=== PATIENT | female | born 1970 | race Caucasian/White ===

== ENCOUNTER → 2016-06-23 | Day surgery (SDC) | payer BC ==
--- NOTE | 2016-06-07 19:22 | HISTORY & PHYSICAL EXAMINATION ---
DATE: 06/23/2016 CHIEF COMPLAINT: Heavy vaginal bleeding with clotting, mass protruding from the vagina. HISTORY OF PRESENT ILLNESS: The patient is a 46-year-old 4, para 4. General health is good. She is on no chronic pills or medications. No form of control. No known drug allergies. She described as coming every 28-30 days, lasting for 4-5 days. For the past 6 months she has 1-2 days of extremely heavy bleeding, soaking over a pad an hour. She also has severe cramps on her heaviest day and as previously stated, has been present for over 6 months. Pelvic exam in the office revealed a large pedunculated cervical fibroid rising at 12 o'clock. She has also had a recent transvaginal ultrasound, presently being scheduled for an outpatient D&C, hysteroscopy and cervical polypectomy. PAST MEDICAL HISTORY: Four children in good health. ALLERGIES: She has no known drug allergies. PAST SURGICAL HISTORY: She has had a tonsillectomy and adenoidectomy. She has had knee surgery. MEDICAL HISTORY: No history of rheumatic fever, heart disease. She is not on any chronic pills or medication. SOCIAL HISTORY: No smoking. No excessive alcohol intake. FAMILY HISTORY: Mom is 61, has chronic lung disease. She is oxygen dependent. Father is 64 in good health except for high blood pressure. She has 1 brother in good health. REVIEW OF SYSTEMS: HEAD: No symptoms of frequent or severe headaches. EYES: No symptoms of blurred vision, double vision. EARS: No symptoms of frequent ear infections, difficulty hearing. NOSE: No symptoms of frequent nosebleeds, difficulty breathing through her nose. THROAT: No symptoms of frequent or severe sore throat, difficulty swallowing. RESPIRATORY SYSTEM: No history of asthma, chest pain, shortness of breath. PHYSICAL EXAMINATION: GENERAL: Well developed, well-nourished 46-year-old white female, alert, oriented x3 and cooperative in no acute distress, appears stated age. EYES: Conjunctivae are pink, sclerae white, no evidence of jaundice. EARS: Had normal light reflex bilaterally. NOSE: Had normal mucosa. Septum is midline. There were no polyps. THROAT: No erythema or evidence of infection. HEART: Regular rhythm. S1 and S2 are normal. LUNGS: Clear to auscultation and percussion. BREASTS: Normal. ABDOMEN: Soft and nontender. PELVIC: Revealed normal-appearing cervix. There was a large pedunculated polyp 3-5 cm in length and about 2 cm in width arising from the cervix at 12 o'clock. The uterus was enlarged to about 11-12 weeks' size. There were no adnexal masses appreciated. MUSCULOSKELETAL: Revealed no calf tenderness. IMPRESSIONS OF THIS CASE: Uterine enlargement, large cervical polyp, hypermenorrhea.
[2016-06-15 08:00] VITALS: Ht 167.6 cm; Wt 88.6 kg
--- NOTE | 2016-06-16 14:17 | HISTORY & PHYSICAL EXAMINATION ---
DATE OF ADMISSION: 06/23/2016 CHIEF COMPLAINT: Heavy vaginal bleeding with clotting, mass protruding from the vagina. HISTORY OF PRESENT ILLNESS: The patient is a 46-year-old 4, para 4. General health is good. She is on no chronic pills or medication. She had tubal ligation for control. She recently came into the office because she felt a mass sticking out of her vagina. Periods are described as every 28-30 days, lasting 4-5 days. At times she has heavy bleeding, soaking over a pad an hour. She has severe cramps one of to the day's. Transvaginal ultrasound on 06/07/2016 showed a 2.1 cm thick endometrial cavity, and a pelvic exam revealed a long polyp protruding from the cervix about 3-4 inches. Presently being scheduled for a D\T\C, hysteroscopy, polypectomy. PAST MEDICAL HISTORY: Four children in good health. ALLERGIES: No known drug allergies. PAST SURGICAL HISTORY: Status post tubal ligation, status post T\T\A, status post right knee surgery. MEDICAL HISTORY: No history of rheumatic fever, heart disease, heart murmur, diabetes, tuberculosis. SOCIAL HISTORY: No smoking. No excessive alcohol intake. Works at [email or web address]. FAMILY HISTORY: Mother is 61 in poor health, has chronic lung disease, alpha 1 antitrypsin deficiency. Father is 64, has high blood pressure. One sister in good health. REVIEW OF SYSTEMS: HEAD: No symptoms of frequent or severe headaches. EYES: No symptoms of blurred vision, double vision. EARS: No symptoms of frequent ear infections, difficulty hearing. NOSE: No symptoms of frequent nosebleeds. PHYSICAL EXAMINATION: GENERAL: Well developed, well-nourished 46-year-old white female, alert, oriented x3 and cooperative in no acute distress, appears stated age. EYES: Conjunctivae are pink. Sclerae white. No evidence of jaundice. EARS: Had normal light reflex bilaterally. NOSE: Had normal mucosa. Septum is midline. There were no polyps. THROAT: No erythema or evidence of infection. Teeth are in good state of repair. HEAD: Was normocephalic, normal distribution of hair. NECK: Supple. Trachea midline. Thyroid is not enlarged. There is no adenopathy appreciated. Both carotids are of good intensity. CHEST: Clear to auscultation and percussion. No wheezes, rales or rhonchi appreciated. HEART: Regular rhythm. S1, S2 were normal. BREASTS: Normal. ABDOMEN: Soft and nontender. PELVIC: Revealed uterus was about 10-11 weeks' gestational size. There was a large 4-5 inch polyp protruding from the external cervical os. MUSCULOSKELETAL: Revealed no calf tenderness. IMPRESSIONS OF THIS CASE: Status post tubal ligation, status post tonsillectomy and adenoidectomy, status post right knee surgery and symptomatic large endometrial polyp, dysfunctional bleeding, abnormal transvaginal ultrasounds. MTDD
[~2016-06-23] VITALS: Ht 167.6 cm; Wt 88.6 kg
[~2016-06-23] MED LIST: ATROPINE SULFATE 0.1 MG/ML 5ML SYR IV PRN; DEXAMETHASONE SOD INJ 4 MG/ML VIAL ONE; EpHEDrine SULFATE INJ 50 MG/ML AMP IV PRN; FENTANYL CITRATE INJ 50 MCG/1 ML 2 ML VIAL ONE; HYDROCODONE/ACETAMOPHEN 5/325MG TAB PO PRN; IBUPROFEN 600 MG TAB PO PRN; KETOROLAC TROMETHAMINE 30 MG/ML VIAL IV. PRN; LACTATED RINGER'S 1000ML 1,000 ML IV SCH; LIDOCAINE HCL 2% 2 ML VIAL (20MG/ML) ONE; LIDOCAINE/EPINEPHRINE 1% INJ 50 ML VIAL ONE; MIDAZOLAM HCL 1 MG/ML 2ML VIAL ONE; MULT-506 PO; ONDANSETRON INJ 2 MG/ML 2 ML VIAL IV PRN; ONDANSETRON INJ 2 MG/ML 2 ML VIAL ONE; OXYC-57 PO; OXYCODONE/ACETAMINOPHEN 5-325 TAB PO PRN; PROMETHAZINE HCL INJ 12.5 MG in SODIUM CHLORIDE 0.9% 50ML 50 ML IV PRN; PROPOFOL IV EMULSION 10 MG/ML 20 ML VIAL IV ONE; SODIUM CHLORIDE 0.9% 1000ML 1,000 ML IV SCH
--- NOTE | 2016-06-23 08:01 | History & Physical Bridge Note ---
H&P Re-Evaluation Bridge Note: I have examined the patient, reviewed the History & Physical and in the interval since the performance of the History & Physical I have noted the following changes of clinical significance: No changes noted
--- NOTE | 2016-06-23 08:58 | [facility] Post Operative Brief Note ---
Immediate Operative Summary Operative Date Jun 23, 2016. Pre-Operative Diagnosis Uterine Enlargement, Large Cervical Polyp, Hypermenorrhea Post-Operative Diagnosis Same Procedure(s) Performed Dilatation And Curettage, Hysteroscopy, Polypectomy Surgeon Dr. Brooke Research/Program Director Surgeon(s) None Findings uterus sounded to 10.5cm large 4 cm cervical polyp at 12 o'clock large amount of endometrial curettings Specimens polyp endometrial curettings Complication(s) None Disposition Recovery Room / PACU
--- NOTE | 2016-06-23 09:01 | Discharge Instructions-SurgCtr ---
Discharge Instructions Visit Reason for Visit: Hypermenorrhea, Cervical Polyp Discharge Discharge Diagnosis / Problem: hypermenorrhea cervical polyp Discharge Goals Goal(s): Improve function, Learn about illness Medications Restart Stopped Medication(s): ACTIVITY RECOMMENDATIONS: * Avoid tampons, douching, hot tubs, pools, and intercourse until bleeding has stopped. * May shower as usual. * No strenuous activity for 24-48 hours. After 24-48 hours, you may do anything you feel like doing (driving and sports are okay). SPECIAL CARE INSTRUCTIONS: Special Diet: * Mild nausea may occur in the immediate post-operative period. * Take clear liquids such as tea, cola or bouillon until all nausea has subsided; you may then resume your normal diet. Special Care: * Light bleeding and vaginal spotting can last from a few days to 3-4 weeks. Call your doctor if bleeding becomes heavier than the heaviest part of your period. * Check your temperature twice a day for one week. If it goes above 100.4 degrees Fahrenheit (38.0 Celsius), notify your doctor. * Call your doctor's office for an appointment for 6 weeks after your surgery. FOLLOW-UP VISIT: Call your doctor's office for an appointment for 6 weeks after your surgery. Activity Recommendations Activity Limitations: as noted below ACTIVITY RECOMMENDATIONS: * Avoid tampons, douching, hot tubs, pools, and intercourse until bleeding has stopped. * May shower as usual. * No strenuous activity for 24-48 hours. After 24-48 hours, you may do anything you feel like doing (driving and sports are okay). SPECIAL CARE INSTRUCTIONS: Special Diet: * Mild nausea may occur in the immediate post-operative period. * Take clear liquids such as tea, cola or bouillon until all nausea has subsided; you may then resume your normal diet. Special Care: * Light bleeding and vaginal spotting can last from a few days to 3-4 weeks. Call your doctor if bleeding becomes heavier than the heaviest part of your period. * Check your temperature twice a day for one week. If it goes above 100.4 degrees Fahrenheit (38.0 Celsius), notify your doctor. * Call your doctor's office for an appointment for 6 weeks after your surgery. FOLLOW-UP VISIT: Call your doctor's office for an appointment for 6 weeks after your surgery. Anesthesia . Post Anesthesia Instructions: If you have had General Anesthesia or IV Sedation: * Do not drive today. * Resume driving when surgeon permits. * Do not make important decisions or sign legal documents today. * Call surgeon for: 1. Temperature elevations greater than 101 degrees F. 2. Uncontrollable pain. 3. Excessive bleeding. 4. Persistent nausea and vomiting. 5. Medication intolerance (nausea, vomiting or rash). * For nausea and vomiting use only clear liquids such as: tea, soda, bouillon until nausea subsides, then gradually increase diet as tolerated. * If you have any concerns or questions, call your surgeon's office. If physician is unavailable and it is an emergency, call 911 or go to the nearest emergency room. . Procedures Procedures Performed: Dilatation And Curettage, Hysteroscopy, Polypectomy Pending Studies Studies pending at discharge: no Medical Emergencies . Who to Call and When: Medical Emergencies: If at any time you feel your situation is an emergency, please call 911 immediately. . Non-Emergent Contact Non-Emergency issues call your: Mixer Lever Operator Call Non-Emergent contact if: temperature is above 100.5 . . "Provider Documentation" section prepared by Maco Brooke.
--- NOTE | 2016-06-23 09:22 | OPERATIVE REPORT ---
DATE OF OPERATION: 06/23/2016 PROCEDURE: D and C, hysteroscopy, cervical polypectomy. INDICATIONS FOR SURGERY: Mass protruding from the vagina. PREOPERATIVE DIAGNOSIS: Abnormal transvaginal ultrasound, large cervical polyp. ESTIMATED BLOOD LOSS: 10 mL ANESTHESIA: General. SURGEON: Dr. Brooke. WEB UI SOFTWARE ENGINEER: Nurse classroom assistant. ESTIMATED BLOOD LOSS: 10 mL OPERATIVE FINDINGS AND PROCEDURE: The patient was brought to the OR table, correctly identified by armband and conversation. General anesthesia was administered. Perineum and vagina were painted with Betadine paint, draped in usual sterile fashion. Catheter was used to empty the bladder. A weighted speculum was placed in the posterior vagina. Anterior lip of the cervix was grasped with single tooth tenaculum. The cervix was easily brought out to the vaginal opening, indicating a [id number] uterine prolapse. Uterus was then sounded to 10.5 cm. The polyp was located at 12 o'clock on the cervix. It was about 4+ cm long and fleshy and had a wide base at 12 o'clock. We proceeded to dilate up the cervical canal, insert a hysteroscope, take photographs, there appeared to be abundant endometrial tissue and then did a thorough and systematic curettage of the entire endometrial cavity both with a smooth and sharp curette. This was productive of a rather large amount of grossly normal appearing tissue and some polypoid-appearing tissue. Following thorough curettage of the endometrial cavity, I infiltrated the cervix at 12 o'clock with local with epinephrine with about 10+ mL. I then did a cold knife excision of the polyp, taking with it a good portion of the base and anterior portion of the cervix. I then used mattress sutures of Vicryl to control the bleeding, 3 mattress sutures and some interrupted sutures. Hemostasis was excellent. I then packed the endocervical canal with Surgicel and the procedure was terminated. I attest to the content of the Intraoperative Record and any orders documented therein. Any exceptions are noted below. PRAVIND
[2016-06-23] MEDS: FENTANYL CITRATE INJ 50 MCG/1 ML 2 ML VIAL IV PRN ×4 (09:23→09:42)
[2016-06-23 10:00] VITALS: TEMP 36.9
--- NOTE | 2016-06-23 10:22 | Anesthesia Progress Nt - [facility] ---
Anesthesia Post Op Note Date & Time Jun 23, 2016 at 10:22 Vital Signs Pain Intensity: 5.0 Vital Signs Past 12 Hours Date Time Temp Pulse Resp B/P Pulse Ox O2 Delivery O2 Flow Rate FiO2 06/23/16 10:00 36.9 79 16 116/76 96 Room Air 06/23/16 09:54 136/76 06/23/16 09:50 87 13 93 06/23/16 09:50 37.0 86 16 133/70 94 Room Air 06/23/16 09:50 87 13 06/23/16 09:49 133/70 06/23/16 09:45 86 14 06/23/16 09:45 84 14 98 06/23/16 09:43 123/102 06/23/16 09:40 84 13 06/23/16 09:40 81 13 98 06/23/16 09:39 124/84 06/23/16 09:35 86 14 93 06/23/16 09:35 87 14 06/23/16 09:33 129/65 06/23/16 09:30 90 11 06/23/16 09:30 89 11 94 06/23/16 09:29 127/78 06/23/16 09:25 94 14 06/23/16 09:25 94 14 87 06/23/16 09:24 109/66 06/23/16 09:20 82 13 99 06/23/16 09:20 82 13 06/23/16 09:18 126/80 06/23/16 09:15 81 14 06/23/16 09:15 82 14 98 06/23/16 09:14 132/68 06/23/16 09:10 86 17 94 06/23/16 09:10 86 17 06/23/16 09:08 117/78 06/23/16 09:05 88 12 06/23/16 09:05 12 06/23/16 09:04 134/70 06/23/16 09:01 75 14 97 06/23/16 09:01 74 14 06/23/16 08:58 133/71 06/23/16 08:57 36.2 78 16 131/67 96 Diffusion Mask 6 06/23/16 08:56 83 25 97 06/23/16 08:56 74 25 06/23/16 07:29 36.5 87 18 142/94 95 Room Air Notes Mental Status: alert / awake / arousable, participated in evaluation Pt Amnestic to Procedure: Yes Nausea / Vomiting: adequately controlled Pain: adequately controlled Airway Patency, RR, SpO2: stable & adequate BP & HR: stable & adequate Hydration State: stable & adequate Anesthetic Complications: no major complications apparent
[2016-06-23 10:31] VITALS: BP 126/80; PULSE 86; O2SAT 96
== END | disposition home or self-care (01) ==
LOC: X.SURG 07:20
PROVIDERS: ATTEND Obstetrics & Gynecology
DX: N93.8 Other specified abnormal uterine and vaginal bleeding (principal); N81.9 Female genital prolapse, unspecified; Z98.51 Tubal ligation status